=== PATIENT | male | born 1955 | race Caucasian/White ===

== ENCOUNTER 2017-10-23 10:43 | Emergency (ER) | payer OTHER ==
[~2017-10-23] VITALS: Ht 193 cm; Wt 92.5 kg
[~2017-10-23 10:43] MED LIST: ACETTAB15; ASCO500T16 PO; CHOL100010 PO; CYAN1LOZ2; FLUO20CA35 PO; LEVO175T3 PO; SIMV20TA2 PO
[2017-10-23 10:46] VITALS: Ht 193 cm; Wt 92.5 kg
[2017-10-23] MEDS ORDERED: SODIUM CHLORIDE 0.9% 1000ML 1,000 ML IV STA (11:09)
[2017-10-23 11:45] VITALS: TEMP 37
[2017-10-23 11:47] LABS: BASO % 0.1 %; BASO ABS # 0.01 K/uL (0-0.2); HEMATOCRIT 44.2 % (42-52); HEMOGLOBIN 15.5 g/dL (14.0-18.0); IG# 0.02 K/uL (0.00-0.02); LYMPH % 3.7 %; LYMPH ABS # 0.32 K/uL (1.2-3.4); MEAN CELL VOLUME 90.2 fL (80-100); MEAN CORPUSCULAR HEMOGLOBIN 31.6 pg (25-34); MEAN CORPUSCULAR HGB CONC 35.1 g/dl (32-36); MEAN PLATELET VOLUME 10.3 fL (7.4-10.4); MONO % 7.5 %; MONO ABS # 0.64 K/uL (0.11-0.59); NEUT % 88.5 %; NEUT ABS # 7.55 K/uL (1.4-6.5); PLATELET COUNT 192 K/uL (130-400); RED CELL DISTRIBUTION WIDTH CV 12.3 % (11.5-14.5); RED CELL DISTRIBUTION WIDTH SD 40.3 fL (36.4-46.3); WHITE BLOOD COUNT 8.54 K/uL (4.8-10.8)
[2017-10-23] MEDS ORDERED: CYAN10005 PO (11:52)
[2017-10-23] MEDS ORDERED: CHOL1000 PO (11:52)
[2017-10-23 12:04] LABS: ALBUMIN 4.2 gm/dl (3.4-5.0); CALCIUM 9.5 mg/dl (8.5-10.1); CREATININE 1.22 mg/dl (0.60-1.40); POTASSIUM 3.8 mmol/L (3.5-5.1)
[2017-10-23 12:22] LABS: INFLUENZA B ANTIGEN Neg for Influ B (NEG)
[2017-10-23] MEDS ORDERED: KETOROLAC TROMETHAMINE 30 MG/ML VIAL IV STA (12:39)
[2017-10-23] MEDS ORDERED: PATIENT'S ALLERGY INFO NEEDS ENTERED SCH (13:00)
[2017-10-23] MEDS ORDERED: OPTIRAY 320 IV PRN (13:00)
--- NOTE | 2017-10-23 13:22 | DIAGNOSTIC IMAGING REPORT ---
SOFT TISSUE NECK WITH CLINICAL HISTORY: 62 years-old Male presenting with R sided jaw pain, with poor R posterior/inferior dentition, difficulty swallowing. TECHNIQUE: Multidetector CT of the neck was performed after the administration of intravenous contrast. IV contrast: 92 mL of Optiray 320. A dose lowering technique was used consistent with the principles of ALARA (as low as reasonably achievable). COMPARISON: None. CT DOSE (mGy.cm): The estimated cumulative dose is 348.54 mGycm. FINDINGS: Green End Man topogram: Unremarkable. Extensive amalgam limits evaluation of the oral cavity and teeth. Allowing for this no periapical lucency or significant endodontic disease is evident. No evidence of dental caries allowing for amalgam. No evidence of superficial or deep inflammatory change. No displacement of the parapharyngeal fat planes. No suspicious enhancing nodularity along the airway. No effacement of the valleculae or piriform sinuses. Vessels patent. Limited intracranial evaluation within normal limits. Visualized portion of the paranasal sinuses and mastoid air cells clear. Temporal mandibular joints intact. Cervical spine with mild degenerative change. No lymphadenopathy. Normal appearance of the parotid and submandibular glands. Thyroid is either diminutive or surgically absent. Lung apices clear apart from mild scarring, right greater than left. IMPRESSION: 1. No evidence of inflammatory change or endodontic disease. 2. No CT abnormality of the neck. Electronically signed by: Elmer Boudreaux M.D. 10/23/2017 1:20 PM Dictated Date/Time: 10/23/2017 1:15 PM
[2017-10-23] MEDS ORDERED: AMOX500C3 PO (14:18)
--- NOTE | 2017-10-23 14:18 | EMERGENCY ROOM VISIT NOTE ---
History First contact with patient: 10:59 Chief Complaint: THROAT PAIN/INJURY Stated Complaint: CAN'T SWALLOW,LYMPH NODE,CHILLS History of Present Illness The patient is a 62 year old male who presents to the Emergency Room via private vehicle accompanied by female with complaints of "can't swallow, lymph nodes, chills". The patient states that he went to see his dentist yesterday, for right posterior inferior molar dental pain. He notes that the tooth appears to be , and will be extracted soon. He unfortunately cannot see an oral surgeon until tomorrow for consultation with removal in the near future. He states that lasted around 6 PM he started to have chills, and then felt body aches diffusely. He also feels pain/difficulty with swallowing because of the tooth on the right/enlarged lymph node he believes just inferior to the angle of mandible on the right. He rates the overall pain at times a 9/10 but notes it's more like a discomfort rather than the pain. He notes no fevers. Review of Systems A complete 10-point Review of Systems was discussed with the patient, with pertinent positives and negatives listed in the History of Present Illness. All remaining Review of Systems questions can be considered negative unless otherwise specified. Past Medical/Surgical History Medical Problems: (1) Prostate cancer Social History Smoking Status: Former Smoker Current/Historical Medications Scheduled Acetaminophen-Caffeine (Excedrin Tension Headache), prn Amoxicillin (Amoxil), 500 MG PO TID Ascorbic Acid (Ascorbic Acid), 500 MG PO DAILY Cholecalciferol (Vitamin D3), 1 TAB PO DAILY Cyanocobalamin (Vitamin B-12), 1,000 MCG PO DAILY Fluoxetine (Prozac), 20 MG PO DAILY Levothyroxine Sodium (Levothyroxine Sodium), 1 TAB PO DAILY Simvastatin (Zocor), 1 TAB PO DAILY Physical Exam Vital Signs Date Time Temp Pulse Resp B/P (MAP) Pulse Ox O2 Delivery O2 Flow Rate FiO2 10/23/17 15:10 73 16 112/67 93 10/23/17 12:53 71 14 124/62 99 Room Air 10/23/17 11:45 37.0 10/23/17 11:05 37.2 76 16 105/58 100 Room Air 10/23/17 10:50 97 Room Air 10/23/17 10:46 36.7 81 18 117/76 97 Room Air Physical Exam VITAL SIGNS - Vital signs and nursing notes were reviewed. Stable. Afebrile. Non-tachycardic and is saturating well on room air 97%. GENERAL -62-year-old male appearing his stated age who is in no acute distress. Communicates well with provider and answers questions appropriately. SKIN - Without rashes. No particular meningeal rash. HEAD - NC/AT. EYES - PERRL with EOMI bilaterally. Sclera anicteric. EARS - No deformities of external structures noted on gross examination bilaterally. External auditory canals without discharge or otorrhea. Tympanic membranes pearly oscar without retraction or bulging. No fluid or purulent material visualized behind the TM. Handle of malleus, umbo, cone of light, pars tensa/flaccid all easily visualized. NOSE - Midline and without cyanosis. No epistaxis or purulent drainage noted. Septum midline without deviation or septal hematoma noted. MOUTH/OROPHARYNX - Without perioral cyanosis. Buccal mucosa pink and moist and without leukoplakia. Tongue midline with equal elevation of palate bilaterally. No tonsillar hypertrophy, erythema, or exudates noted. Fair dentition noted. No intraoral swelling, drainage or discharge. NECK - Neck with FROM. Supple to palpation. Minimal right anterior cervical lymphadenopathy noted. No nuchal rigidity. No evidence of Curt angina. No inferior tongue tenderness. LUNGS - Chest wall symmetric without accessory muscle use, intercostals retractions, or central cyanosis. Normal vesicular breath sounds CTA B/L. No wheezes, rales, or rhonchi appreciated. CARDIAC - RRR with S1/S2. No murmur, rubs, or gallops appreciated. EXTREMITIES - +5/5 strength noted in UE/LE bilaterally. NEUROLOGIC - Cranial nerves II through XII grossly intact. Medical Decision & Procedures ER Provider Diagnostic Interpretation: SOFT TISSUE NECK WITH CLINICAL HISTORY: 62 years-old Male presenting with R sided jaw pain, with poor R posterior/inferior dentition, difficulty swallowing. TECHNIQUE: Multidetector CT of the neck was performed after the administration of intravenous contrast. IV contrast: 92 mL of Optiray 320. A dose lowering technique was used consistent with the principles of ALARA (as low as reasonably achievable). COMPARISON: None. CT DOSE (mGy.cm): The estimated cumulative dose is 348.54 mGycm. FINDINGS: Educational Assistant topogram: Unremarkable. Extensive amalgam limits evaluation of the oral cavity and teeth. Allowing for this no periapical lucency or significant endodontic disease is evident. No evidence of dental caries allowing for amalgam. No evidence of superficial or deep inflammatory change. No displacement of the parapharyngeal fat planes. No suspicious enhancing nodularity along the airway. No effacement of the valleculae or piriform sinuses. Vessels patent. Limited intracranial evaluation within normal limits. Visualized portion of the paranasal sinuses and mastoid air cells clear. Temporal mandibular joints intact. Cervical spine with mild degenerative change. No lymphadenopathy. Normal appearance of the parotid and submandibular glands. Thyroid is either diminutive or surgically absent. Lung apices clear apart from mild scarring, right greater than left. IMPRESSION: 1. No evidence of inflammatory change or endodontic disease. 2. No CT abnormality of the neck. Electronically signed by: Elmer Boudreaux M.D. 10/23/2017 1:20 PM Dictated Date/Time: 10/23/2017 1:15 PM Laboratory Results 10/23/17 11:30 Red Blood Count 4.90, Mean Corpuscular Volume 90.2, Mean Corpuscular Hemoglobin 31.6, Mean Corpuscular Hemoglobin Concent 35.1, Mean Platelet Volume 10.3, Neutrophils (%) (Auto) 88.5, Lymphocytes (%) (Auto) 3.7, Monocytes (%) (Auto) 7.5, Eosinophils (%) (Auto) 0.0, Basophils (%) (Auto) 0.1, Neutrophils # (Auto) 7.55, Lymphocytes # (Auto) 0.32, Monocytes # (Auto) 0.64, Eosinophils # (Auto) 0.00, Basophils # (Auto) 0.01 10/23/17 11:30 Test 10/23/17 11:25 10/23/17 11:30 Influenza Type A Antigen Neg for Influ A (NEG) Influenza Type B Antigen Neg for Influ B (NEG) White Blood Count 8.54 K/uL (4.8-10.8) Red Blood Count 4.90 M/uL (4.7-6.1) Hemoglobin 15.5 g/dL (14.0-18.0) Hematocrit 44.2 % (42-52) Mean Corpuscular Volume 90.2 fL (80-100) Mean Corpuscular Hemoglobin 31.6 pg (25-34) Mean Corpuscular Hemoglobin Concent 35.1 g/dl (32-36) Platelet Count 192 K/uL (130-400) Mean Platelet Volume 10.3 fL (7.4-10.4) Neutrophils (%) (Auto) 88.5 % Lymphocytes (%) (Auto) 3.7 % Monocytes (%) (Auto) 7.5 % Eosinophils (%) (Auto) 0.0 % Basophils (%) (Auto) 0.1 % Neutrophils # (Auto) 7.55 K/uL (1.4-6.5) Lymphocytes # (Auto) 0.32 K/uL (1.2-3.4) Monocytes # (Auto) 0.64 K/uL (0.11-0.59) Eosinophils # (Auto) 0.00 K/uL (0-0.5) Basophils # (Auto) 0.01 K/uL (0-0.2) RDW Standard Deviation 40.3 fL (36.4-46.3) RDW Coefficient of Variation 12.3 % (11.5-14.5) Immature Granulocyte % (Auto) 0.2 % Immature Granulocyte # (Auto) 0.02 K/uL (0.00-0.02) Anion Gap 5.0 mmol/L (3-11) Est Creatinine Clear Calc Drug Dose 75.1 ml/min Estimated GFR () 72.2 Estimated GFR (Non- 62.3 BUN/Creatinine Ratio 8.4 (10-20) Calcium Level 9.5 mg/dl (8.5-10.1) Total Bilirubin 1.3 mg/dl (0.2-1) Aspartate Amino Transf (AST/SGOT) 18 U/L (15-37) Alanine Aminotransferase (ALT/SGPT) 25 U/L (12-78) Alkaline Phosphatase 66 U/L (45-117) Total Protein 8.0 gm/dl (6.4-8.2) Albumin 4.2 gm/dl (3.4-5.0) Globulin 3.8 gm/dl (2.5-4.0) Albumin/Globulin Ratio 1.1 (0.9-2) Medications Administered Medications (Trade) Dose Ordered Sig/Alberto Route Start Time Stop Time Status Last Admin Dose Admin Sodium Chloride 1,000 ml @ 999 mls/hr Q1H1M STAT IV 10/23/17 11:09 10/23/17 12:09 DC 10/23/17 11:41 999 MLS/HR Ketorolac Tromethamine (Toradol Inj) 30 mg NOW STAT IV 10/23/17 12:39 10/23/17 12:41 DC 10/23/17 12:50 30 MG Medical Decision Patient was seen and evaluated as above. He presents to us today with right inferior dental pain, minimal swelling as well as complaints of chills. He is nontoxic on exam. Vital signs stable. After obtaining a thorough history and physical examination the above work up was performed. CBC reveals no concern of leukocytosis or anemia. Neutrophils elevated at 7.55. Metabolic panel reveals sodium of 134. No evidence of emergent kidney or liver failure. Bilirubin high at 1.3. Patient is to follow-up regarding these results with his family doctor. Influenza testing negative. Benefits versus risk of obtaining CT scan of the patient's neck was discussed with the patient, and decision was made to scan based upon the patient's level of pain, as well as the concern for any potential deeper infectious process. Results as above. No acute process. I suspect that the patient is likely experiencing to processes, one is likely that of dental pain related to the tooth nerve being which will be dealt with by an oral surgeon in the near future, and second I suspect he is likely experiencing a viral process like the flu, despite having influenza negative swab there are numerous other viruses that he could've acquired that should pass. He was given Toradol here for pain, as well as fluids. He was covered up in blankets when I reevaluated him, he just notes that he feels cold. His vital signs do not suggest sepsis nor does his physical examination. I believe he is stable for outpatient management with close follow-up with the family doctor in all surgeon and he certainly is to return here with worsening of his symptoms. The patient was educated upon management, had questions answered prior to discharge, and was discharged home in good condition. In the evaluation and treatment of this patient, the following differential diagnoses were considered: Periapical Abscess, Osteonecrosis of the Jaw, Dental Fracture, Dental Caries, Curt's Angina, Vincent's Angina, Facial Cellulitis. Impression Primary Impression: Atypical odontalgia Departure Information Dispostion Home / Self-Care Condition GOOD Prescriptions Amoxicillin (AMOXIL) 500 Mg Cap 500 MG PO TID, #30 CAP Prov: Nba Cruz PA-C 10/23/17 Referrals Zak Park M.D. (PCP) Patient Instructions My [facility] Additional Instructions You have been treated in the Emergency Department for Dental Pain. You were prescribed Amoxicillin to be taken every 8 hours. This is an antibiotic. All antibiotics have the potential to cause diarrhea. Stop this medication and contact a medical provider if you were to develop any significant adverse side effects including: wheezing, shortness of breath, passing out, vomiting, or a diffuse rash. Always take antibiotics as directed and COMPLETE the ENTIRE course regardless of the improvement of your symptoms. For pain control, you can use the following [id number] medicines: - Regular strength (325mg/tab) Tylenol (acetaminophen) 2 tabs every 4-6 hours as needed. Do not exceed 12 tablets in a 24 hour period. Avoid taking more than 3 grams (3000 mg) of Tylenol per day. This includes any other sources of acetaminophen you may take on a regular basis. - Regular strength (200 mg/tab) Advil (ibuprofen) 1-2 tabs every 4-6 hours as needed. Do not exceed a dose of 3200 mg per day. Refrain from smoking cigarettes or using chewing tobacco until you have been evaluated by your dentist. Keeping beverages lukewarm and consuming soft foods can decrease your pain. Warm compresses over the affected area may offer some relief. Return to the emergency department if you develop the following symptoms despite treatment course outlined above: fever, intractable pain, increased redness, swelling, or purulent discharge.
[2017-10-23 15:10] VITALS: BP 112/67; PULSE 73; O2SAT 93
== END 2017-10-23 15:10 | disposition home or self-care (01) ==
LOC: C.EDB 10:45 → C.EDC 15:10
DX: K08.89 Other specified disorders of teeth and supporting structures (principal); Z85.46 Personal history of malignant neoplasm of prostate; Z87.891 Personal history of nicotine dependence; Z79.899 Other long term (current) drug therapy

== ENCOUNTER 2021-07-29 01:00 | Inpatient (IN) ==
[2021-07-29] MEDS ORDERED: MoRPHine SULFATE 4 MG/ML 1 ML CARP\\VIAL IV STA ×2 (02:48→04:17)
--- NOTE | 2021-07-29 02:50 | Emergency Department Note ---
Impression & Plan Hematuria ADMIT ED Provider Note HPI: The patient is a 66-year-old male who presents the emergency department with suprapubic discomfort and hematuria/urinary retention that began earlier this afternoon following a procedure that he had at the [facility] in [place], [place]. Patient states he had this done by a urologist Dr. East. He states he lives in [place]. Patient states that about 4 PM yesterday afternoon he developed some hematuria, states he was passing some blood clots, patient states that eventually he was unable to pass any urine. He states he developed suprapubic discomfort and therefore presented to the ED here at [facility] for further care. On arrival here to the ED the patient is in moderate distress secondary to suprapubic pain, bladder scan was performed shortly after arrival which revealed 700 cc of fluid and therefore Ramey catheter was placed which drained 600 to 700 cc of gross hematuria. ROS: -: Hematuria status post urologic procedure *10 point review systems was conducted and is otherwise negative unless stated above *Outpatient medications and allergy history reviewed PE: General: Alert, mild to moderate distress secondary to pain HEENT: Normocephalic, atraumatic, trachea midline Eyes: Extraocular eye movement is intact, no scleral erythema Pulmonary: Clear to auscultation bilaterally, no wheezing Cardio: Regular rate and rhythm GI: Abdomen is soft, nontender : Suprapubic tenderness to palpation, Ramey catheter in place with a mild amount of blood surrounding the urethral meatus without active bleeding MSK: No evidence of trauma or malformation of the extremities, no edema Skin: No evidence of rash Neuro: Alert, no focal deficits Psychiatric: Cooperative nuclear monitoring technician: - An order was placed for continuous cardiac monitoring - Patient was noted to be in sinus rhythm with rate of 70 Medical Decision Making: Patient presented to the emergency department with gross hematuria several days after having a urologic procedure done at [facility] in [place], [place]. Ramey catheter was placed however this did clot, three-way catheter was therefore placed with good resolution of the patient's pain although he was having intermittent bladder spasms. Hemoglobin is 11.8, blood pressure stable, patient is not tachycardic, he was given IV morphine for pain. I did speak with the on-call urologist for [facility], Dr. Webber, accepted transfer however we were informed that there was no bed availability for likely [address] Webber therefore recommended admission to this facility for urologic consultation. I did discuss case with Dr. Duff who states that the patient can have the three-way catheter placed and if he is having continued discomfort or continued bleeding he can be admitted for urologic consultation. Three-way catheter did also require irrigation after this clotted, after irrigation the patient states his pain is greatly improved. He is still having a moderate amount of bleeding although it did clear somewhat. He is having intermittent bladder spasms. At this time I think the best course of action wo uld be for him to stay here in the hospital for urologic consultation until there is a bed available for him at his original [facility] facility. CT imaging of the abdomen pelvis without contrast was obtained for further evaluation of the bladder wall given his recent procedure, this is pending official read at the time of admission. I did discuss the case with the on-call hospitalist for [facility], Dr. Raines, who accepted the patient to an inpatient bed for further management and urologic consultation. Patient was in agreement to this plan, consent for transfer was signed when a bed is available if this is determined appropriate at that time. Patient was in agreement to this plan he w as admitted in stable condition. * Diagnosis: Gross hematuria status post urologic procedure * Disposition: Admission Benjamin Manley DO Emergency Medicine Past Med/Surg History Social History Smoking Status: Never smoker Preferred Language: Maori Feels Safe at Home: Yes Allergies Allergies Allergy/AdvReac Type Severity Reaction Status Date / Time No Known Allergies Allergy Unverified 11/05/19 19:39 Home Meds Home Medications Medication Instructions Recorded Confirmed acetaminophen 500 mg tablet 1,000 mg PO Q6H PRN 11/05/19 11/05/19 (Tylenol Extra Strength) ascorbic acid (vitamin C) 500 mg 500 mg PO DAILY 11/05/19 11/05/19 tablet (Vitamin C) cholecalciferol (vitamin D3) 25 1,000 unit PO DAILY 11/05/19 11/05/19 mcg (1,000 unit) chewable tablet (Vitamin D3) cyanocobalamin (vitamin B-12) 0 mcg PO DAILY 11/05/19 11/05/19 1,000 mcg tablet (Vitamin B-12) fluoxetine 20 mg capsule 20 mg PO DAILY 11/05/19 11/05/19 ibuprofen 200 mg tablet 600 mg PO Q6H PRN 11/05/19 11/05/19 levothyroxine 175 mcg tablet 175 mcg PO DAILY 11/05/19 11/05/19 simvastatin 20 mg tablet 20 mg PO QPM 11/05/19 11/05/19 vitamin E 1,000 unit capsule 1,000 unit PO DAILY 11/05/19 11/05/19 Previous Rx's Medication Instructions Recorded ciprofloxacin HCl 500 mg tablet 500 mg PO BID #18 tab 11/05/19 (Cipro) Results & Data (ED) Vital Signs Vital Signs - 24 hr 07/29/21 01:04 07/29/21 05:00 07/29/21 05:02 Temperature 36.5 C Temperature Source Temporal Artery Scan Pulse Rate 69 Pulse Rate [Apical] 69 Respiratory Rate 18 18 Respiratory Effort / Characteristics Non-Labored Spontaneous Respiratory Depth Normal Respiratory Pattern Regular Blood Pressure 138/71 Blood Pressure [Right Arm] 125/72 Blood Pressure Mean 93 Blood Pressure Mean [Right Arm] 89 Blood Pressure Position Sitting Blood Pressure Position [Right Arm] Sitting Pulse Oximetry 98 99 99 Oxygen Delivery Method Room Air Room Air Room Air Sepsis Recent Fever Within 48 Hours No Sepsis New/Unexplained Change in Mental Status N/A Sepsis Action Taken by Nursing No Action Required Laboratory Data Result diagrams: 07/29/21 03:14 07/29/21 03:14 Lab Results 07/29/21 07/29/21 Range/Units 03:14 03:14 WBC 12.06 H (4.8-10.8) K/uL RBC 3.90 L (4.7-6.1) M/uL Hgb 11.8 L (14.0-18.0) g/dL Hct 36.0 L (42-52) % MCV 92.3 (80-100) fL MCH 30.3 (25-34) pg MCHC 32.8 (32-36) g/dL RDW Std Deviation 42.4 (36.4-46.3) fL RDW Coeff of Marlen 12.6 (11.5-14.5) % Plt Count 223 (130-400) K/uL MPV 10.1 (7.4-10.4) fL Immature Gran % (Auto) 0.2 % Neut % (Auto) 86.7 % Lymph % (Auto) 5.2 % [place] % (Auto) 7.6 % Eos % (Auto) 0.2 % Baso % (Auto) 0.1 % Neut # (Auto) 10.45 H (1.4-6.5) K/uL Lymph # (Auto) 0.63 L (1.2-3.4) K/uL [place] # (Auto) 0.92 H (0.11-0.59) K/uL Eos # (Auto) 0.03 (0-0.5) K/uL Baso # (Auto) 0.01 (0-0.2) K/uL Immature Gran # (Auto) 0.02 (0.00-0.02) K/uL Sodium 137 (136-145) mmol/L Potassium 4.4 (3.5-5.1) mmol/L Chloride 107 (98-107) mmol/L Carbon Dioxide 28 (21-32) mmol/L Anion Gap 2.0 L (3-11) BUN 15 (7-18) mg/dl Creatinine 1.09 (0.6-1.4) mg/dl Est Cr Clr Drug Dosing 77.5 ml/min Est GFR ( Amer) 80.4 ml/min Est GFR (Non-Af Amer) 69.4 ml/min BUN/Creatinine Ratio 14.2 (10-20) Glucose 123 H (70-99) mg/dl Calcium 8.7 (8.5-10.1) mg/dl Total Bilirubin 0.4 (0.2-1) mg/dl AST 12 L (15-37) U/L ALT 19 (12-78) Alkaline Phosphatase 64 (45-117) U/L Total Protein 6.6 (6.4-8.2) gm/dl Albumin 3.4 (3.4-5.0) gm/dl Globulin 3.2 (2.5-4.0) gm/dl Albumin/Globulin Ratio 1.1 (0.9-2) Administered Medications Discontinued Medications Morphine Sulfate (Morphine Sulfate 4 Mg/Ml 1 Ml Carp\Vial) 4 mg IV NOW STA Stop: 07/29/21 02:49 Last Admin: 07/29/21 03:41 Dose: 4 mg Documented by: [id number] Morphine Sulfate (Morphine Sulfate 4 Mg/Ml 1 Ml Carp\Vial) 4 mg IV NOW STA Stop: 07/29/21 04:18 Last Admin: 07/29/21 04:22 Dose: 4 mg Documented by: [id number] Discharge Plan Visit Data Chief Complaint: Abdominal Pain Stated Complaint: ABDOMINAL PAIN ED Provider: Benjamin Manley Discharge Problem: Hematuria Forms Stand Alone Forms: [facility] Prescriptions Prescriptions: No Action vitamin E 1,000 unit Capsule 1,000 unit PO DAILY RF: 0 levothyroxine 175 mcg tablet 175 mcg PO DAILY RF: 0 cyanocobalamin (vitamin B-12) [Vitamin B-12] 1,000 mcg Tablet 0 mcg PO DAILY RF: 0 acetaminophen [Tylenol Extra Strength] 500 mg Tablet 1,000 mg PO Q6H PRN (Reason: Pain) RF: 0 ascorbic acid (vitamin C) [Vitamin C] 500 mg Tablet 500 mg PO DAILY RF: 0 simvastatin 20 mg tablet 20 mg PO QPM RF: 0 ibuprofen 200 mg Tablet 600 mg PO Q6H PRN (Reason: Pain) RF: 0 fluoxetine 20 mg capsule 20 mg PO DAILY RF: 0 cholecalciferol (vitamin D3) [Vitamin D3] 25 mcg (1,000 unit) Tablet,Chewable 1,000 unit PO DAILY RF: 0 ciprofloxacin HCl [Cipro] 500 mg tablet 500 mg PO BID Qty: 18 RF: 0 Referrals Referrals: Fredi Coyne MD [Primary Care Provider] - Discharge Problem: Hematuria Qualifiers: Hematuria type: gross Qualified Code(s): R31.0 - Gross hematuria
[2021-07-29 03:28] LABS: Basophils # (auto) 0.01 K/uL (0-0.2); Basophils % (auto) 0.1 %; Eosinophils # (auto) 0.03 K/uL (0-0.5); Eosinophils % (auto) 0.2 %; Hemoglobin 11.8 g/dL (14.0-18.0); Immature Granulocytes # (auto) 0.02 K/uL (0.00-0.02); Immature Granulocytes % (auto) 0.2 %; Lymphocytes # (auto) 0.63 K/uL (1.2-3.4); Lymphocytes % (auto) 5.2 %; Mean Corpuscular Hemoglobin 30.3 pg (25-34); Mean Corpuscular Hgb Conc 32.8 g/dL (32-36); Mean Corpuscular Volume 92.3 fL (80-100); Mean Platelet Volume 10.1 fL (7.4-10.4); Monocytes # (auto) 0.92 K/uL (0.11-0.59); Monocytes % (auto) 7.6 %; Neutrophils # (auto) 10.45 K/uL (1.4-6.5); Neutrophils % (auto) 86.7 %; Platelet Count 223 K/uL (130-400); RDW Coefficient of Variation 12.6 % (11.5-14.5); RDW Standard Deviation 42.4 fL (36.4-46.3); White Blood Count 12.06 K/uL (4.8-10.8)
[2021-07-29 03:47] LABS: Albumin Level 3.4 gm/dl (3.4-5.0); BUN Creatinine Ratio 14.2 (10-20); Calcium 8.7 mg/dl (8.5-10.1); Creatinine Clr Calc Pharmacy 77.5 ml/min; Est GFR (African American) 80.4 ml/min; Est GFR (Non-African American) 69.4 ml/min; Potassium 4.4 mmol/L (3.5-5.1)
[2021-07-29 03:50] LABS: Albumin Globulin Ratio 1.1 (0.9-2); Bilirubin,Total 0.4 mg/dl (0.2-1); Globulin 3.2 gm/dl (2.5-4.0); Total Protein 6.6 gm/dl (6.4-8.2)
[2021-07-29 05:35] LABS: Magnesium 2.2 mg/dl (1.8-2.4)
[2021-07-29 05:56] LABS: Thyroid Stimulating Hormone 1.31 uIu/ml (0.300-4.500)
--- NOTE | 2021-07-29 05:56 | History & Physical Report ---
Date of Service July 29, 2021 Assessment & Plan (1) Hematuria: Plan: Causing urinary retention Recent cystoscopy for bladder tumor probable malignancy Anemia secondary to above Prostate cancer, stable disease as per recent outpatient [facility] urologist note Hypothyroidism, euthyroid as of today's TSH hyperlipidemia on statin Rx Hyperglycemia rule out DM OBS [facility] Urology consult Re: Urinary retention, hematuria (ER provider already in touch with Dr. Duff.) N.p.o. for now until patient seen by neurologist in anticipation of any procedure. Check hemoglobin A1c DVT prophylaxis with SCDs Re: Hematuria Full code Text document was generated using [employer]ix[employer] voice recognition software. It may contain grammatical or spelling errors. Kindly contact undersigned for clarification of any documentation item in question. History of Present Illness Chief Complaint: Hematuria, urinary retention Primary Care Provider: Dr. Hodges History obtained from patient, family, and records. Medical history significant for prostate cancer, bladder tumor probable malignancy status post recent biopsy, hypothyroidism, hyperlipidemia, mood disorder, past tobacco abuse. Two months ago, patient noted gross painless hematuria. CT abdomen pelvis done last month showed enhancing nodule within urinary bladder arising from left anterior bladder wall concerning for urothelial malignancy. No suspicious renal mass or obvious suspicious urine upper urinary tract lesion. Two days ago, patient underwent outpatient cystoscopy at [facility] for bladder tumor probable cancer. Bladder was found to have 1 papillary tumor on the left anterior wall with a small stalk. Subsequent biopsy done. Yesterday, patient noted hematuria symptoms which later was followed by urinary retention and discomfort. No fever, no chills, no chest pain, no S OB. Patient consulted ER for evaluation. Ramey catheter placed in the ER. Medical History as above Patient known to have prostate cancer since 2017. Was on active surveillance protocol. Biopsy from October 2019 showed stable disease despite high PSA. Surgical History : Cysto urethroscopy with bladder tumor fulguration, prostatic biopsy Family History : Colon cancer Personal/Social history : Non-smoker, occasional EtOH intake, retired computer game tester Allergies Allergy/AdvReac Type Severity Reaction Status Date / Time No Known Allergies Allergy Unverified 07/29/21 07:24 Home Medications Medication Instructions Recorded Confirmed Type fluoxetine 20 mg capsule 20 mg PO DAILY 11/05/19 07/29/21 History ibuprofen 200 mg tablet 600 mg PO Q6H PRN 11/05/19 07/29/21 History simvastatin 20 mg tablet 20 mg PO HS 11/05/19 07/29/21 History acetaminophen 325 mg tablet 650 mg PO Q4H PRN 07/29/21 07/29/21 History (Tylenol) [id number]-rdkulhlgndbum-jofjxvgv 250 1 tab PO Q6H PRN 07/29/21 07/29/21 History mg-250 mg-65 mg tablet (Excedrin Extra Strength) levothyroxine 137 mcg tablet 137 mcg PO DAILYBB 07/29/21 07/29/21 History phenazopyridine 200 mg tablet 200 mg PO TID PRN 07/29/21 07/29/21 History (Pyridium) Past Med/Surg History Social History Smoking Status: Former smoker Smoking End Date: "Sometime in the ."; Second Hand Exposure: No; Do You Dip or Chew Tobacco: No; Hx Alcohol Use: Yes Alcohol type: beer Hx Substance Use: No Preferred Language: Jamaican Communication Ability: Effective Truck Safety Inspector Required: No Beliefs That Will Affect Care: None Current Living Situation: Spouse Other Information That Helps Us Care for You: No Feels Safe at Home: Yes Safety Concerns: Feels Safe At This Time Assistive Devices: Glasses and Hearing Aid - Bilateral Review of Systems Review of Systems: As per HPI, all 10 systems reviewed, all other ROS negative Physical Exam Physical Exam: GENERAL: Slightly uncomfortable, pleasant, no respiratory distress SKIN: Pallor, warm HEENT: Bespectacled, pale palpebral conjunctivae, no ptosis, dry buccal mucosa NECK : Supple, no tenderness CHEST : CTA, no tenderness HEART : RRR, no obvious murmurs ABDOMEN: Some distention, minimal hypogastric tenderness : Ramey catheter in place EXTREMITIES : No LE swelling/tenderness, no other conspicuous deformities noted NEUROLOGIC : Coherent, no facial asymmetry, no other gross focality Results & Data Results & Data ([facility]) Vital Signs (Past 12 Hours) Vital Signs Temp Pulse Pulse Resp BP BP Pulse Ox 07/29/21 05:02 69 18 125/72 99 07/29/21 05:00 99 07/29/21 01:04 36.5 C 69 18 138/71 98 Laboratory Results Laboratory Results WBC 12.06 K/uL (4.8-10.8) H 07/29/21 03:14 RBC 3.90 M/uL (4.7-6.1) L 07/29/21 03:14 Hgb 11.8 g/dL (14.0-18.0) L 07/29/21 03:14 Hct 36.0 % (42-52) L 07/29/21 03:14 MCV 92.3 fL (80-100) 07/29/21 03:14 MCH 30.3 pg (25-34) 07/29/21 03:14 MCHC 32.8 g/dL (32-36) 07/29/21 03:14 RDW Std Deviation 42.4 fL (36.4-46.3) 07/29/21 03:14 RDW Coeff of Marlen 12.6 % (11.5-14.5) 07/29/21 03:14 Plt Count 223 K/uL (130-400) 07/29/21 03:14 MPV 10.1 fL (7.4-10.4) 07/29/21 03:14 Immature Gran % (Auto) 0.2 % 07/29/21 03:14 Neut % (Auto) 86.7 % 07/29/21 03:14 Lymph % (Auto) 5.2 % 07/29/21 03:14 Vernon % (Auto) 7.6 % 07/29/21 03:14 Eos % (Auto) 0.2 % 07/29/21 03:14 Baso % (Auto) 0.1 % 07/29/21 03:14 Neut # (Auto) 10.45 K/uL (1.4-6.5) H 07/29/21 03:14 Lymph # (Auto) 0.63 K/uL (1.2-3.4) L 07/29/21 03:14 Vernon # (Auto) 0.92 K/uL (0.11-0.59) H 07/29/21 03:14 Eos # (Auto) 0.03 K/uL (0-0.5) 07/29/21 03:14 Baso # (Auto) 0.01 K/uL (0-0.2) 07/29/21 03:14 Immature Gran # (Auto) 0.02 K/uL (0.00-0.02) 07/29/21 03:14 PT Cancelled 07/29/21 04:45 INR Cancelled 07/29/21 04:45 APTT Cancelled 07/29/21 04:45 PTT Ratio Cancelled 07/29/21 04:45 Sodium 137 mmol/L (136-145) 07/29/21 03:14 Potassium 4.4 mmol/L (3.5-5.1) 07/29/21 03:14 Chloride 107 mmol/L (98-107) 07/29/21 03:14 Carbon Dioxide 28 mmol/L (21-32) 07/29/21 03:14 Anion Gap 2.0 (3-11) L 07/29/21 03:14 BUN 15 mg/dl (7-18) 07/29/21 03:14 Creatinine 1.09 mg/dl (0.6-1.4) 07/29/21 03:14 Est Cr Clr Drug Dosing 77.5 ml/min 07/29/21 03:14 Est GFR ( Amer) 80.4 ml/min 07/29/21 03:14 Est GFR (Non-Af Amer) 69.4 ml/min 07/29/21 03:14 BUN/Creatinine Ratio 14.2 (10-20) 07/29/21 03:14 Glucose 123 mg/dl (70-99) H 07/29/21 03:14 Calcium 8.7 mg/dl (8.5-10.1) 07/29/21 03:14 Magnesium 2.2 mg/dl (1.8-2.4) 07/29/21 03:14 Total Bilirubin 0.4 mg/dl (0.2-1) 07/29/21 03:14 AST 12 U/L (15-37) L 07/29/21 03:14 ALT 19 (12-78) 07/29/21 03:14 Alkaline Phosphatase 64 U/L (45-117) 07/29/21 03:14 Total Protein 6.6 gm/dl (6.4-8.2) 07/29/21 03:14 Albumin 3.4 gm/dl (3.4-5.0) 07/29/21 03:14 Globulin 3.2 gm/dl (2.5-4.0) 07/29/21 03:14 Albumin/Globulin Ratio 1.1 (0.9-2) 07/29/21 03:14 SARS-CoV-2, RNA, NAAT NEGATIVE (NEGATIVE) 07/29/21 05:[address] abdomen pelvis initial read: No prior studyfor comparison. The liver spleen pancreas and gallbladder appear normal. Stomach, small bowel and colon appear normal. Appendix appears normal. The adrenals and kidneys and ureters appear normal. There is complex mixed attenuation within the bladder with a small amount of bladder air. The prostate appears normal. There are moderate atherosclerotic changes in the abdominal aorta. Impression: Mixed densitywithin the bladder likelyreflecting blood products, possiblya bladder mass. Presence of air in the bladder likelyrelated to recent catheterization (1) Hematuria Hematuria type: gross Qualified Code(s): R31.0 - Gross hematuria
[2021-07-29] MEDS: SODIUM CHLORIDE 0.9% 1000ML 1,000 ML IV SCH ×2 (06:29→23:39)
--- NOTE | 2021-07-29 08:59 | CT Scan Report ---
CT OF THE ABDOMEN AND PELVIS WITHOUT CONTRAST CLINICAL HISTORY: suprapubic pain s/p bladder biopsy today COMPARISON STUDY: No previous studies for comparison. TECHNIQUE: Axial images of the abdomen and pelvis were obtained without IV contrast. Images were revi ewed in the axial, sagittal, and coronal planes. Automated exposure control was utilized for the dominic dy. A dose lowering technique was utilized adhering to the principles of ALARA. FINDINGS: Lung bases are unremarkable. No pneumatosis, free air or portal venous gas is present. No r enal, ureteral or bladder calculi are present. Prostate is enlarged, measuring 5.4 cm in transverse d imension. There is a small amount gas within the bladder. Extensive hyperdense material within the bl adder is noted. This is consistent with hemorrhage. Bladder is distended. Sensitivity for detection o f associated bladder lesions is significantly diminished on this unenhanced exam. Adjacent soft tissu es are unremarkable. Evaluation of the remainder of the abdomen and pelvis is suboptimal on this unen hanced exam. 1.1 cm fat-containing right hepatic dome lesion is benign. There is no biliary or pancre atic ductal dilatation. Unenhanced images of the spleen, adrenal glands and pancreas are unremarkable . There is no biliary or pancreatic ductal dilatation. There is no evidence for a bowel obstruction. The appendix is normal. No acute fracture or suspicious lesion is identified within visualized skelet al structures. IMPRESSION: 1. Large amount of hemorrhage within the bladder. Distended bladder. Small amount of gas within the b ladder from recent procedure. No hydronephrosis. 2. Enlarged prostate. 3. No bowel obstruction. ACT 112: Negative or not required by law. Electronically signed by: John Schaffer M.D. 07/29/2021 8:58 AM
[2021-07-29] MEDS ORDERED: LORazepam 0.5 MG/1 ML VIAL IV PRN (09:06)
[2021-07-29] MEDS ORDERED: ACETAMINOPHEN 325 MG TAB PO PRN (09:06)
[2021-07-29] MEDS ORDERED: PROMETHAZINE HCL 12.5 MG in SODIUM CHLORIDE 0.9% 50 ML IV PRN (09:06)
[2021-07-29] MEDS ORDERED: IBUPROFEN 200 MG TAB PO PRN (09:06)
[2021-07-29] MEDS: traMADol HCL 50 MG TABLET PO PRN ×2 (09:27→20:48)
[2021-07-29] MEDS: PHENAZOPYRIDINE HCL 200 MG TAB PO PRN ×2 (10:13→20:13)
[2021-07-29] MEDS: LEVOTHYROXINE SODIUM 137 MCG TABLET PO SCH (10:13)
[2021-07-29] MEDS: FLUoxetine HCL 20 MG CAP PO SCH (10:14)
[2021-07-29] MEDS: KETOROLAC TROMETHAMINE 15 MG/ML VIAL IV PRN ×2 (12:25→20:48)
[2021-07-29] MEDS ORDERED: MoRPHine SULFATE 2 MG/ML CARP IV ONE (12:41)
[2021-07-29] MEDS ORDERED: OXYBUTYNIN CHLORIDE 5 MG TAB PO PRN (12:54)
--- NOTE | 2021-07-29 14:18 | Urology Consultation ---
Date of Consultation July 29, 2021 Assessment & Plan (1) Hematuria, gross: (2) Clot retention of urine: (3) Prostate cancer: (4) Lesion of bladder: Patient company medical and surgical history was reviewed and summarized above. All imaging was reviewed interpreted by myself. Patient does have a large amount of clot debris within bladder. Was irrigated in the ER but appears to continue to have a large amount. Imaging confirms the clot within the bladder. Patient is having worsening discomfort and spasms. Has been increasing clots. Has not had a substantial clearing of the urine. Patient had the resection for the lesion within the bladder based on patient's description likely a papillary tumor. Patient had developed bleeding afterwards. No other major changes or issues. Has been dealing with acute issue. Had blood in the past. Discussed different options. Discussed possible need for clot evacuation and OR if patient becomes completely obstructed or of clot material is unable to be irrigated. Patient consented to bedside irrigation. Substantial irrigation was completed with a near complete clearing of the clot material within the bladder. A large amount of clot was able to be irrigated with copious saline irrigation and a Najma syringe. The urine was still red in color but no notable clot material. We will plan to continue patient CBI at this point. We will try to hydrate CBI down to lower rate attempting to keep the urine light pink to red. We will monitor for now. If patient continues to have major issues or if major problems or drop in blood count may need to consider taken to the OR for possible fulguration and further evacuation. At this point we will plan to continue to monitor and supportive care. Maintain catheter for now. We will utilized agents for bladder spasms and discomfort. Patient complicated medical and surgical history is being summarized above. All imaging was reviewed interpreted as above. All labs were reviewed. Plan to follow-up with Dr. East post procedure to discuss findings. Likely will be able to continue to evaluate and monitor patient's issues at that time. History of Present Illness Attending Physician: Preethi Hagan MD History of Present Illness Consult for urinary issues with hematuria. Patient a patient of Dr. East and had undergone a TURBT due to a mass or lesion within the bladder. Patient had done well initially but developed gross hematuria. At the time became severe and uncontrollable. Had trouble voiding. Was seen in the ER and had a catheter placed and clot evacuated by irrigation with the ER. Only a minimal amount was able to be relieved however this did improve patient's issues considerably. Patient has mild to moderate discomfort in pelvis and groin going to back and side in waves. Has been tolerating the catheter. Patient this morning developed more acute pain coming in waves and spasms. Has been passing large clot debris and concern for possible obstruction. Patient had been started on CBI by the ER. Has an extensive here history with Dr. East. Aside from the tumor/lesion which was removed, had some minor urinary issues in the past. No severe nausea or vomiting. Currently no fevers. No significant family history of malignancy. Allergies Allergy/AdvReac Type Severity Reaction Status Date / Time No Known Allergies Allergy Unverified 07/29/21 07:24 Home Medications Medication Instructions Recorded Confirmed Type fluoxetine 20 mg capsule 20 mg PO DAILY 11/05/19 07/29/21 History ibuprofen 200 mg tablet 600 mg PO Q6H PRN 11/05/19 07/29/21 History simvastatin 20 mg tablet 20 mg PO HS 11/05/19 07/29/21 History acetaminophen 325 mg tablet 650 mg PO Q4H PRN 07/29/21 07/29/21 History (Tylenol) [id number]-enoftrucoeixt-pcqyglpu 250 1 tab PO Q6H PRN 07/29/21 07/29/21 History mg-250 mg-65 mg tablet (Excedrin Extra Strength) levothyroxine 137 mcg tablet 137 mcg PO DAILYBB 07/29/21 07/29/21 History phenazopyridine 200 mg tablet 200 mg PO TID PRN 07/29/21 07/29/21 History (Pyridium) Patient History Social History Smoking Status: Never smoker Preferred Language: Swedish Feels Safe at Home: Yes Review of Systems Review of Systems: All systems reviewed & are unremarkable except as noted in HPI & below Physical Exam Physical Exam: General: Alert and oriented x 3 in no acute distress. Patient is well nourished and well kept. HEENT: Normocephalic Atraumatic. Inspection normal. Cranial Nerves 2-12 Grossly intact. Nares are clear. Neck is supple. Normal inspection of face. Normal inspection of neck. Neurologic: No deficits on inspection. Baseline for motor function and sensory. Psychologic: Normal affect. Respiratory: Nonlabored. No use of accessory muscles. No tachypnea or dyspnea. Cardiovascular: No tachycardia Skin: [place] and Dry. No rashes or visible lesions. Extremities: Moving without issues. No motor deficits on inspection Lymphatics: No edema Abdomen: Soft Non-distended. No acites. No rebound or guarding. : Three-way catheter in with bright red urine with multiple clots. Irrigated to light red/pink without clots. Results & Data ([facility]) Vital Signs (Past 12 Hours) Vital Signs Temp Pulse Pulse Pulse Resp BP BP 07/29/21 10:22 36.6 C 73 18 108/72 07/29/21 07:00 102 H 25 H 107/82 07/29/21 06:00 86 12 150/105 H 07/29/21 05:02 69 18 125/72 07/29/21 05:00 Pulse Ox 07/29/21 10:22 100 07/29/21 07:00 98 07/29/21 06:00 98 07/29/21 05:02 99 07/29/21 05:00 99 PG Care Time/CCT Total # of Minutes Spent Total Time Spent with Patient: Total time spent is greater than 50% in coordination of care (as documented) at patient's floor/unit and/or counseling patient: Coding Level of Care Code 72282 Inpt Consult Level 5 Diagnoses Hematuria, gross R31.0 Clot retention of urine R33.8 Prostate cancer C61 Lesion of bladder N32.9
[2021-07-29 16:43] LABS: Hematocrit (blood only) 28.7 % (42-52); Hemoglobin 9.5 g/dL (14.0-18.0)
[2021-07-29] MEDS ORDERED: LIDOCAINE 2% JELLY 5 ML TUBE ONE (19:54)
[2021-07-29] MEDS: SIMVASTATIN 20 MG TAB PO SCH (20:14)
[2021-07-29] MEDS ORDERED: BELLADONNA/OPIUM SUPP 60 MG SUPP PR PRN (20:34)
[2021-07-29] MEDS ORDERED: INFLUENZA VACCINE HIGH DOSE PF 65+ 0.7 ML SYR IM ONE (21:00)
--- NOTE | 2021-07-29 23:25 | Communication Note ---
Date of Service: July 29, 2021 Pt was seen and examined for follow up of hematuria and urinary retention. CT abd/pelvis showed large amount of hemorrhage within the bladder. Distended bladder. Small amount of gas within the bladder from recent procedure. No hydronephrosis. Enlarged prostate. Continue bladder irrigation. Continue monitor Hemoglobin 11.8 today then dropped to 9.5 today. Continue monitor H/H and transfused if need. MD Danya
[2021-07-30] MEDS: LEVOTHYROXINE SODIUM 137 MCG TABLET PO SCH (06:18)
[2021-07-30 07:29] LABS: Basophils # (auto) 0.01 K/uL (0-0.2); Basophils % (auto) 0.1 %; Eosinophils # (auto) 0.02 K/uL (0-0.5); Eosinophils % (auto) 0.2 %; Hematocrit (blood only) 21.8 % (42-52); Hemoglobin 7.2 g/dL (14.0-18.0); Immature Granulocytes # (auto) 0.02 K/uL (0.00-0.02); Immature Granulocytes % (auto) 0.2 %; Lymphocytes # (auto) 1.49 K/uL (1.2-3.4); Lymphocytes % (auto) 12.5 %; Mean Corpuscular Hemoglobin 30.8 pg (25-34); Mean Corpuscular Volume 93.2 fL (80-100); Mean Platelet Volume 9.8 fL (7.4-10.4); Monocytes # (auto) 1.58 K/uL (0.11-0.59); Monocytes % (auto) 13.3 %; Neutrophils # (auto) 8.77 K/uL (1.4-6.5); Neutrophils % (auto) 73.7 %; Platelet Count 215 K/uL (130-400); RDW Coefficient of Variation 13.2 % (11.5-14.5); RDW Standard Deviation 44.7 fL (36.4-46.3); Red Blood Count 2.34 M/uL (4.7-6.1); White Blood Count 11.89 K/uL (4.8-10.8)
[2021-07-30 07:46] LABS: Poikilocytosis Present; Polychromasia 1+
[2021-07-30] MEDS ORDERED: SODIUM CHLORIDE 0.9% 250 ML IV PRN (07:46)
[2021-07-30 07:58] LABS: BUN Creatinine Ratio 22.9 (10-20); Calcium 7.6 mg/dl (8.5-10.1); Creatinine Clr Calc Pharmacy 78.2 ml/min; Est GFR (African American) 81.3 ml/min; Est GFR (Non-African American) 70.2 ml/min; Potassium 4.2 mmol/L (3.5-5.1)
[2021-07-30] MEDS: FLUoxetine HCL 20 MG CAP PO SCH (08:40)
[2021-07-30] MEDS: traMADol HCL 50 MG TABLET PO PRN ×2 (10:48→23:20)
[2021-07-30] MEDS: PHENAZOPYRIDINE HCL 200 MG TAB PO PRN (10:49)
--- NOTE | 2021-07-30 14:36 | Urology Progress Note ---
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 After catheter exchange issues did improve. Patient is currently draining well with a orange/light yellow urine likely from Pyridium. Did discuss ways patient to monitor and self monitor issues. Patient has been complaining of some spasms around the catheter. Discussed option such as continued use of anticholinergics or utilization of BNO suppositories. We will plan to continue patient CBI at this point. We will try to hydrate CBI down to lower rate attempting to keep the urine ideally clear/yellow/orange but cannot tolerate up to light pink to red. We will monitor for now. If patient continues to have major issues or if major problems or drop in blood count may need to consider taken to the OR for possible fulguration and further evacuation. At this point we will plan to continue to monitor and supportive care. Maintain catheter for now. Multiple patients from patient but different options. Due to severity of issues last night and concern for recurrence of issues with continued gross hematuria may need to consider fulguration and clot evacuation in the OR tomorrow if patient is having issues. Patient is somewhat hesitant. He would prefer to have a procedure with Dr. East if possible however due to the severe bed crisis it would be unlikely that transfer would be available. If patient does continue to do well will likely be able discharged with catheter. Plan to follow-up with Dr. East post procedure to discuss findings. Likely will be able to continue to evaluate and monitor patient's issues at that time. Admission and Anticipated Discharge Date Admission Date: July 29, 2021 Subjective [facility] with development of gross hematuria approximately 24 hours later. Developed then severe clot retention. Has been admitted on continuous bladder irrigation and supportive care. Patient underwent a aggressive clot evacuation by myself yesterday. Patient has been tolerating well, but is having some pain and discomfort. Last evening however patient developed a severe episode of gross hematuria with distention. Once again required irrigation. Patient had catheter exchanged out based on my recommendations to a larger three-way catheter. At this point a large amount of urine was able to be drained. This drastically improved output. Patient did have continued episodes through the night. And clinical laboratory service teacher. Has been tolerating catheter. He does get leakage around catheter at times. Multiple questions from patient. Otherwise patient has been ambulating. Had been tolerating diet. Review of Systems Review of Systems: All systems reviewed & are unremarkable except as noted in HPI & below Physical Exam Physical Exam: General: Alert in no acute distress. HEENT: Normocephalic Atraumatic. Inspection normal. Cranial Nerves 2-12 Grossly intact. Normal inspection of face. Normal inspection of neck. Psychologic: Normal affect. Respiratory: Nonlabored. No use of accessory muscles. No tachypnea or dyspnea. Cardiovascular: No tachycardia Skin: [place] and Dry. No rashes or visible lesions. Extremities/Lymphatics: No edema Abdomen: Appropriately tender. Mild distended. No rebound or guarding. : Ramey in place draining orange/Pyridium urine without clot. Results & Data ([facility]) Vital Signs (Past 12 Hours) Vital Signs Temp Pulse Pulse Resp BP BP Pulse Ox 07/30/21 12:13 36.9 C 76 18 124/67 100 07/30/21 11:05 36.6 C 75 18 122/64 100 07/30/21 10:05 36.9 C 78 18 120/66 98 07/30/21 09:35 37.2 C 73 16 116/64 98 07/30/21 09:22 36.9 C 82 18 125/58 L 98 07/30/21 09:05 36.9 C 75 18 112/60 96 07/30/21 06:17 36.6 C 90 15 114/62 97 PG Care Time/CCT Total # of Minutes Spent Total Time Spent with Patient: Total time spent is greater than 50% in coordination of care (as documented) at patient's floor/unit and/or counseling patient: Coding Level of Care Code 06873 Subseq Hosp Care Lvl 3 Diagnoses Hematuria, gross R31.0 Clot retention of urine R33.8 Prostate cancer C61 Lesion of bladder N32.9
[2021-07-30] MEDS: COUGH DROP (SUGAR FREE) LOZ 24 LOZ/1 BOX BUCCAL PRN ×2 (15:02→18:35)
[2021-07-30] MEDS: SODIUM CHLORIDE 0.9% 1000ML 1,000 ML IV SCH (16:41)
[2021-07-30] MEDS: SIMVASTATIN 20 MG TAB PO SCH (20:11)
[2021-07-30 20:15] LABS: Hematocrit (blood only) 22.6 % (42-52); Hemoglobin 7.5 g/dL (14.0-18.0)
--- NOTE | 2021-07-30 23:58 | Hospitalist Progress Note ---
Date of Service July 30, 2021 Assessment & Plan (1) Hematuria: Plan: Urinary retention Recent cystoscopy for bladder tumor probable malignancy CT abd/pelvis showed Large amount of hemorrhage within the bladder. Distended bladder. Small amount of gas within the bladder from recent procedure. No hydronephrosis. Lewis cath changed to a larger size Urology on board Case discussed with urology that recommended to continue bladder irrigation if continue to have gross hematuria/clot may need to consider fulguration and clot evacuation in the OR tomorrow Continue monitor hemoglobin Symptoms improved Continue Pyridium Anemia Hgb dropped to 7.2 today Type and crossed done and will plan to transfuse 2 units PRBC Consent signed for blood transfusion Continue monitor H/H Continue to hold Excedrin prn Prostate cancer Follow up with dr. East outpatient [facility] Hypothyroidism TSH stable Continue Levothyroxine Hyperglycemia Will Check Hba1c Continue monitor BS DVT prophylaxis with SCDs Re: Hematuria Full code Disposition Will discharge once stable Admission and Anticipated Discharge Date Admission Date: July 29, 2021 Subjective Pt was seen and examined for follow up of urinary retention and hematuria Lying in bed with no acute distress Pt said that bladder pain and spasm improved since lewis catheter was changed last night Pt said that his strength and energy are ok Hgb dropped to 7.2 today Consent signed for PRBC transfusion Denies any chest pain, palpitation, dizziness and SOB Review of Systems Review of Systems: All systems reviewed & are unremarkable except as noted in Subjective Physical Exam Physical Exam: General- No acute distress Head- atraumatic Eyes- PERRL, EOMI, ENT- oropharynx clear Neck- supple, no JVD Lungs- clear to auscultation Heart- regular rhythm; no murmur Abdomen- normal bowel sounds, soft, nontender Extremities- no calf tenderness Neuro- alert, oriented x 3; PERRL, EOMI; no facial palsy; no dysarthria Skin- warm & dry Results & Data Results & Data ([facility]) Vital Signs (Past 12 Hours) Vital Signs Temp Pulse Pulse Resp BP BP Pulse Ox 07/30/21 22:02 36.9 C 75 16 113/54 L 97 07/30/21 16:17 36.7 C 76 18 132/68 96 07/30/21 12:13 36.9 C 76 18 124/67 100 (1) Hematuria Hematuria type: gross Qualified Code(s): R31.0 - Gross hematuria
[2021-07-31] MEDS ORDERED: SODIUM CHLORIDE 0.9% 250 ML IV PRN (00:01)
[2021-07-31] MEDS: LEVOTHYROXINE SODIUM 137 MCG TABLET PO SCH (05:54)
[2021-07-31] MEDS: FLUoxetine HCL 20 MG CAP PO SCH (07:41)
[2021-07-31 08:36] LABS: Basophils # (auto) 0.02 K/uL (0-0.2); Basophils % (auto) 0.2 %; Eosinophils # (auto) 0.15 K/uL (0-0.5); Eosinophils % (auto) 1.8 %; Immature Granulocytes # (auto) 0.04 K/uL (0.00-0.02); Immature Granulocytes % (auto) 0.5 %; Lymphocytes # (auto) 1.22 K/uL (1.2-3.4); Lymphocytes % (auto) 14.9 %; Mean Corpuscular Hemoglobin 30.7 pg (25-34); Mean Corpuscular Hgb Conc 33.3 g/dL (32-36); Mean Platelet Volume 9.6 fL (7.4-10.4); Monocytes # (auto) 0.96 K/uL (0.11-0.59); Monocytes % (auto) 11.7 %; Neutrophils # (auto) 5.79 K/uL (1.4-6.5); Neutrophils % (auto) 70.9 %; Platelet Count 163 K/uL (130-400); RDW Coefficient of Variation 13.5 % (11.5-14.5); RDW Standard Deviation 44.9 fL (36.4-46.3); Red Blood Count 2.61 M/uL (4.7-6.1); White Blood Count 8.18 K/uL (4.8-10.8)
[2021-07-31 10:20] LABS: Calcium 7.9 mg/dl (8.5-10.1); Creatinine Clr Calc Pharmacy 89.9 ml/min; Est GFR (African American) 96.2 ml/min; Potassium 3.8 mmol/L (3.5-5.1)
[2021-07-31 10:58] LABS: Estimated Average Glucose 105 mg/dl; Hemoglobin A1C 5.3 % (4.5-5.6)
--- NOTE | 2021-07-31 11:03 | Hospitalist Progress Note ---
Date of Service July 31, 2021 Assessment & Plan (1) Hematuria: Plan: Urinary retention Recent cystoscopy for bladder tumor probable malignancy CT abd/pelvis showed Large amount of hemorrhage within the bladder. Distended bladder. Small amount of gas within the bladder from recent procedure. No hydronephrosis. Ramey cath changed to a larger size Urology on board Case discussed with urology that recommended to continue bladder irrigation if continue to have gross hematuria/clot may need to consider fulguration and clot evacuation in the OR Continue monitor hemoglobin -8.0 today s/p 2 unit PRBC Continue Pyridium repeat hgb 1600 Anemia Hgb dropped to 7.2 on 07/31/21 s/p 2 units PRBC hgb 8.0 today Consent signed for blood transfusion Continue monitor H/H Continue to hold Excedrin prn Prostate cancer Follow up with dr. East outpatient [facility] Hypothyroidism TSH stable Continue Levothyroxine Hyperglycemia a1c 5.3 DVT prophylaxis with SCDs Re: Hematuria Full code Disposition Continue to monitor hgb, irrigate cath prn for clots. If hgb remains stable and urine remains clear may be able to d/c in a.m. PCP: Previously Dr. Coyne, will follow up with [facility] outpatient Patient was seen and examined in collaboration with Dr. Hagan, please see addendum The chart was completed utilizing [email or web address] Speech voice recognition software. Grammatical errors, random word insertions, pronoun errors, and incomplete sentences are an occasional consequence of this system due to software limitations, ambient noise, and hardware issues. Any formal questions or concerns about the content, text, or information contained within the body of this dictation should be directly addressed to the provider for clarification. Admission and Anticipated Discharge Date Admission Date: July 31, 2021 Supervising Physician Co-Signing Physician Notes Patient was seen and and examined. Agree with Treasure MOSQUEDA exam assessment and plan. Patient said that he feels much better today. He said that he is not having any bladder discomfort. Urine has been clear through the Ramey catheter. Denies any chest pain, palpitation, dizziness, shortness of breath. General- No acute distress Head- atraumatic Eyes- PERRL, EOMI, ENT- oropharynx clear Neck- supple, no JVD Lungs- clear to auscultation Heart- regular rhythm; no murmur Abdomen- normal bowel sounds, soft, nontender Extremities- no calf tenderness Neuro- alert, oriented x 3; PERRL, EOMI; no facial palsy; no dysarthria Skin- warm & dry Hematuria: Urinary retention Recent cystoscopy for bladder tumor probable malignancy CT abd/pelvis showedLarge amount of hemorrhage within the bladder. Distended bl adder. Small amount of gas within the bladder from recent procedure. No hydronephrosis. Ramey cath changed to a larger size Urology on board Case discussed with urology that recommended to continue bladder irrigation Urology recommended to discharge home with the Ramey catheter and follow-up with urology outpatient Continue Pyridium Clinically improved significantly Okay from urology standpoint to discharge home today Anemia Hgb dropped to 7.2 today Received 2 unit PRBC during the hospital course Hemoglobin 8 this morning and repeat hemoglobin later in afternoon 8.9 Continue to hold Excedrin prn and any other NSAID Please refer to Treasure MOSQUEDA's documentation for other problems MD Danya Subjective Patient was seen and examined in 322. Follow-up hematuria. He offers no acute concerns this morning. Urine has become more clear overnight without evidence of blood. He denies fever, chills, sweats, lightheadedness, dizziness, chest pain, shortness of breath, nausea, vomiting, abdominal pain. Review of Systems Review of Systems: All systems reviewed & are unremarkable except as noted in HPI & below Physical Exam Physical Exam: Gen: WD/WN, NAD, A&O x3 HEENT: Normocephalic, atraumatic, conjunctivae moist, sclerae anicteric, mucous membranes moist. Lung: Clear to Auscultation bilaterally, no wheezes/rales/rhonchi Heart: Regular rate, regular rhythm, no murmurs, rubs, or gallops Abdomen: Soft, NT, ND +BS x 4 Extremities: No edema Skin: Warm, no rash, negative turgor. : Ramey draining yellow urine Results & Data Results & Data ([facility]) Vital Signs (Past 12 Hours) Vital Signs Temp Pulse Pulse Resp BP BP Pulse Ox 07/31/21 07:22 36.6 C 66 18 115/65 95 07/31/21 03:33 36.7 C 66 16 124/68 95 07/31/21 02:42 65 16 120/68 95 07/31/21 02:15 36.9 C 67 14 116/70 97 07/31/21 01:59 37.1 C 69 16 111/65 96 07/31/21 01:33 37.0 C 78 16 115/63 95 Laboratory Results Short CBC 07/30/21 07/31/21 Range/Units 20:05 08:07 WBC 8.18 (4.8-10.8) K/uL Hgb 7.5 L 8.0 L (14.0-18.0) g/dL Hct 22.6 L 24.0 L (42-52) % Plt Count 163 (130-400) K/uL BMP 07/31/21 09:14 Sodium 139 Potassium 3.8 Chloride 105 Carbon Dioxide 29 BUN 12 D Creatinine 0.94 Glucose 112 H Calcium 7.9 L Medications Administered Current Inpatient Medications Acetaminophen (Acetaminophen 325 Mg Tab) 650 mg PO Q4H PRN PRN Reason: pain/fever Stop: 08/28/21 09:05 Belladonna Alkaloids/Opium (Belladonna/Opium Supp 60 Mg Supp) 60 mg MD Q8H PRN PRN Reason: Bladder pain Stop: 08/12/21 20:33 Fluoxetine HCl (Fluoxetine Hcl 20 Mg Cap) 20 mg PO DAILY DENNY Stop: 08/28/21 10:29 Last Admin: 07/31/21 07:41 Dose: 20 mg Documented by: Lorazepam (Ativan) 0.5 mg in 1 mls @ 1 mls/min IV Q4H PRN PRN Reason: Anxiety/Agitation Stop: 08/28/21 09:05 Last Admin: 07/29/21 11:23 Dose: 1 mls/min Documented by: Promethazine HCl 12.5 mg/ (Sodium Chloride) 50.5 mls @ 202 mls/hr IV Q6H PRN PRN Reason: Nausea And Vomiting Stop: 08/28/21 09:05 Ibuprofen (Ibuprofen 200 Mg Tab) 200 mg PO Q6H PRN PRN Reason: Mild Pain Stop: 08/28/21 09:05 Ketorolac Tromethamine (Ketorolac Tromethamine 15 Mg/Ml Vial) 15 mg IV Q6H PRN PRN Reason: Pain Stop: 08/03/21 09:05 Last Admin: 07/29/21 20:48 Dose: 15 mg Documented by: Levothyroxine Sodium (Levothyroxine Sodium 137 Mcg Tablet) 137 mcg [facility] Stop: 08/28/21 10:29 Last Admin: 07/31/21 05:54 Dose: 137 mcg Documented by: Menthol (Cough Drop (Sugar Free) María Elena 24 María Elena/1 Box) 1 maría elena BUCCAL PRN PRN PRN Reason: Sore Throat Stop: 08/29/21 14:10 Last Admin: 07/30/21 18:35 Dose: 1 maría elena Documented by: Oxybutynin Chloride (Oxybutynin Chloride 5 Mg Tab) 5 mg PO Q8H PRN PRN Reason: Bladder pain Stop: 08/28/21 12:53 Last Admin: 07/29/21 13:59 Dose: 5 mg Documented by: Phenazopyridine HCl (Phenazopyridine Hcl 200 Mg Tab) 200 mg PO TID PRN PRN Reason: Bladder pain Stop: 08/28/21 09:05 Last Admin: 07/30/21 10:49 Dose: 200 mg Documented by: Simvastatin (Simvastatin 20 Mg Tab) 20 mg PO QPM DENNY Stop: 08/28/21 20:59 Last Admin: 07/30/21 20:11 Dose: 20 mg Documented by: Tramadol HCl (Tramadol Hcl 50 Mg Tablet) 25 - 50 mg PO Q4H PRN PRN Reason: Pain Stop: 08/28/21 09:05 Last Admin: 07/30/21 23:20 Dose: 50 mg Documented by: (1) Hematuria Hematuria type: gross Qualified Code(s): R31.0 - Gross hematuria
--- NOTE | 2021-07-31 11:28 | Urology Progress Note ---
Date of Service July 31, 2021 Assessment & Plan (1) Hematuria, gross: (2) Clot retention of urine: Plan: 66yo M who is s/p recent TURBT at outside facility admitted with urinary retention and gross hematuria. - Pt with clot retention requiring Ramey catheter placement and CBI - Hematuria has cleared - Ramey catheter draining clear yellow urine with CBI clamped - No acute intervention indicated at this time - He is afebrile, VSS. - Labs reviewed -White count normal, Hemoglobin 8.0 today s/p 2 unit PRBC, Creatinine normal - Continue to trend - Continue supportive care and close monitoring - Maintain Ramey catheter and continue on discharge - Ok to gently hand irrigate catheter as needed for clots, retention, suprapubic pain - Monitor H&H, transfuse as felt necessary per primary team - Plan to follow-up with current urologist (Dr. East) as outpatient for continued care - Will continue to follow peripherally, please call with any further questions or concerns Admission and Anticipated Discharge Date Admission Date: July 31, 2021 Subjective Pt examined at bedside this morning. Awake, resting in bed on arrival. No acute distress. He denies abdominal, flank, or suprapubic pain. No fevers or chills. Denies nausea or vomiting. Ramey intact, draining clear yellow urine with CBI clamped. Offers no additional complaints at time of exam. Review of Systems Constitutional: as per Subjective / HPI Gastrointestinal: as per Subjective / HPI Genitourinary: + as per Subjective / HPI Physical Exam Constitutional: well developed and well nourished; no acute distress and not ill appearing Respiratory: normal respiratory effort and able to speak in complete sentences; no labored breathing and no audible wheezes Gastrointestinal (Abdomen): Inspection/Auscultation: abdomen normal to inspection; abdomen not distended Musculoskeletal: Head/Neck/Chest: normocephalic Skin: No visible rashes or lesions to exposed skin areas Neurologic: moves all extremities and awake Psychiatric: Orientation: alert, oriented x 3 and cooperative Genitourinary: Ramey catheter intact, draining clear yellow urine Results & Data ([facility]) Vital Signs (Past 12 Hours) Vital Signs Temp Pulse Pulse Resp BP BP Pulse Ox 07/31/21 07:22 36.6 C 66 18 115/65 95 07/31/21 03:33 36.7 C 66 16 124/68 95 07/31/21 02:42 65 16 120/68 95 07/31/21 02:15 36.9 C 67 14 116/70 97 07/31/21 01:59 37.1 C 69 16 111/65 96 07/31/21 01:33 37.0 C 78 16 115/63 95 PG Care Time/CCT Total # of Minutes Spent Total Time Spent with Patient: Total time spent is greater than 50% in coordination of care (as documented) at patient's floor/unit and/or counseling patient: Coding Level of Care Code 55913 Subseq Hosp Care Lvl 2 Diagnoses Hematuria, gross R31.0 Clot retention of urine R33.8
[2021-07-31] MEDS: traMADol HCL 50 MG TABLET PO PRN (15:21)
[2021-07-31 16:32] LABS: Hematocrit (blood only) 26.5 % (42-52); Hemoglobin 8.9 g/dL (14.0-18.0)
--- NOTE | 2021-07-31 16:46 | Discharge Summary ---
Date of Service July 31, 2021 Admission HPI Per Admitting Provider History obtained from patient, family, and records. Medical history significant for prostate cancer, bladder tumor probable malignancy status post recent biopsy, hypothyroidism, hyperlipidemia, mood disorder, past tobacco abuse. Two months ago, patient noted gross painless hematuria. CT abdomen pelvis done last month showed enhancing nodule within urinary bladder arising from left anterior bladder wall concerning for urothelial malignancy. No suspicious renal mass or obvious suspicious urine upper urinary tract lesion. Two days ago, patient underwent outpatient cystoscopy at [facility] for bladder tumor probable cancer. Bladder was found to have 1 papillary tumor on the left anterior wall with a small stalk. Subsequent biopsy done. Yesterday, patient noted hematuria symptoms which later was followed by urinary retention and discomfort. No fever, no chills, no chest pain, no S OB. Patient consulted ER for evaluation. Lewis catheter placed in the ER. Medical History as above Patient known to have prostate cancer since 2017. Was on active surveillance protocol. Biopsy from October 2019 showed stable disease despite high PSA. Surgical History : Cysto urethroscopy with bladder tumor fulguration, prostatic biopsy Family History : Colon cancer Personal/Social history : Non-smoker, occasional EtOH intake, retired computer science teacher Admission Exam Per Admitting Provider GENERAL: Slightly uncomfortable, pleasant, no respiratory distress SKIN: Pallor, warm HEENT: Bespectacled, pale palpebral conjunctivae, no ptosis, dry buccal mucosa NECK : Supple, no tenderness CHEST : CTA, no tenderness HEART : RRR, no obvious murmurs ABDOMEN: Some distention, minimal hypogastric tenderness : Lewis catheter in place EXTREMITIES : No LE swelling/tenderness, no other conspicuous deformities noted NEUROLOGIC : Coherent, no facial asymmetry, no other gross focality Principal Diagnosis Hematuria s/p cystoscopy Acute blood loss anemia Discharge Exam Gen: WD/WN, NAD, A&O x3 HEENT: Normocephalic, atraumatic, conjunctivae moist, sclerae anicteric, mucous membranes moist. Lung: Clear to Auscultation bilaterally, no wheezes/rales/rhonchi Heart: Regular rate, regular rhythm, no murmurs, rubs, or gallops Abdomen: Soft, NT, ND +BS x 4 Extremities: No edema Skin: Warm, no rash, negative turgor. : Lewis draining yellow urine Discharge Data Allergies Allergy/AdvReac Type Severity Reaction Status Date / Time No Known Allergies Allergy Unverified 07/29/21 07:24 Consultations 07/29/21 05:22 ED Decision to Admit Stat Urology Consult: Assessment & Plan (1) Hematuria, gross: (2) Clot retention of urine: Plan: 66yo M who is s/p recent TURBT at outside facility admitted with urinary retention and gross hematuria. - Pt with clot retention requiring Lewis catheter placement and CBI - Hematuria has cleared - Lewis catheter draining clear yellow urine with CBI clamped - No acute intervention indicated at this time - He is afebrile, VSS. - Labs reviewed -White count normal, Hemoglobin 8.0 today s/p 2 unit PRBC, Creatinine normal - Continue to trend - Continue supportive care and close monitoring - Maintain Lewis catheter and continue on discharge - Ok to gently hand irrigate catheter as needed for clots, retention, suprapubic pain - Monitor H&H, transfuse as felt necessary per primary team - Plan to follow-up with current urologist (Dr. East) as outpatient for continued care - Will continue to follow peripherally, please call with any further questions or concerns Procedures Performed Operation Date: 07/31/21 07:00 <No data on this case meets the specified criteria> Ordered Studies Abdomen/Pelvis CT 07/29/21 02:51 CT OF THE ABDOMEN AND PELVIS WITHOUT CONTRAST CLINICAL HISTORY: suprapubic pain s/p bladder biopsy today COMPARISON STUDY: No previous studies for comparison. TECHNIQUE: Axial images of the abdomen and pelvis were obtained without IV contrast. Images were reviewed in the axial, sagittal, and coronal planes. Automated exposure control was utilized for the study. A dose lowering technique was utilized adhering to the principles of ALARA. FINDINGS: Lung bases are unremarkable. No pneumatosis, free air or portal venous gas is present. No renal, ureteral or bladder calculi are present. Prostate is enlarged, measuring 5.4 cm in transverse dimension. There is a small amount gas within the bladder. Extensive hyperdense material within the bladder is noted. This is consistent with hemorrhage. Bladder is distended. Sensitivity for detection of associated bladder lesions is significantly diminished on this unenhanced exam. Adjacent soft tissues are unremarkable. Evaluation of the remainder of the abdomen and pelvis is suboptimal on this unenhanced exam. 1.1 cm fat-containing right hepatic dome lesion is benign. There is no biliary or pancreatic ductal dilatation. Unenhanced images of the spleen, adrenal glands and pancreas are unremarkable. There is no biliary or pancreatic ductal dilatation. There is no evidence for a bowel obstruction. The appendix is normal. No acute fracture or suspicious lesion is identified within visualized skeletal structures. IMPRESSION: 1. Large amount of hemorrhage within the bladder. Distended bladder. Small amount of gas within the bladder from recent procedure. No hydronephrosis. 2. Enlarged prostate. 3. No bowel obstruction. ACT 112: Negative or not required by law. Electronically signed by: John Schaffer M.D. 07/29/2021 8:58 AM Diabetes Follow up a1c 5.3 Hospital Course (1) Hematuria: This is a 58-year-old male who has significant past medical history of prostate cancer and hypothyroidism who presented to ED after recently undergoing TURBT at [facility] and developed urinary retention and hematuria. CT abdomen pelvis on admission showed large amount of hemorrhage within the bladder, distended bladder and small amount of gas in the bladder from recent procedure. His Lewis catheter was changed to a larger size. Urology was consulted who recommended to continue bladder irrigation. His hemoglobin dropped to 7.2 and was transfused 2 units of PRBC. He tolerated CBI well and urine remained yellow and clear without further bleeding. He was seen by urology on day of discharge. His hematuria had cleared and it was felt he was safe to be discharged home with Lewis catheter in place. He is recommended to follow-up with Dr. East his urologist as outpatient. His hemoglobin has improved and is trending up to 8.9. He is scheduled for follow-up with PCP and urologist. At time of discharge he was in good spirits, vital signs are stable, hemoglobin was 8.9 and hematuria has resolved. The chart was completed utilizing [employer] Speech voice recognition software. Grammatical errors, random word insertions, pronoun errors, and incomplete sentences are an occasional consequence of this system due to software limita tions, ambient noise, and hardware issues. Any formal questions or concerns about the content, text, or information contained within the body of this dictation should be directly addressed to the provider for clarification. Total Time Total Time Spent Total Time Spent (In Minutes): 35 minutes Total Time Includes: Examination of the Patient, Discharge Planning, Medication Reconciliation, Communication With Other Providers and Other Discharge Plan Discharge Items Patient Disposition: Home - Self-Care Reason For Visit: HEMATURIA/URINARY RETENTION Discharge Diagnosis: Hematuria s/p cystoscopy Acute blood loss anemia Activity: Resume your previous activity Lifting: None Non-emergency contact: Primary Care Provider and Urologist Call non-emergency contact if: you have any medication questions, your symptoms worsen, your pain is not controlled, your pain is worsening, your pain is unusual for you, your pain is concerning for you, you have a fever and your temperature is above 101 Follow-up/Referrals: Sue East MD [Physician] - (Date & Time 08/03/2021 3:30 PM Provider Sue East MD Department Urology [facility] Please note that this is a telephone appointment. Dr East aware that you are at [facility], the Urology office will call you on your cell phone. ) Srinivas Hodges MD [Outside Practitioners] - (Date & Time 08/04/2021 3:20 PM Provider Srinivas Hodges MD Department Family Practice [facility] ) Diet: Regular Addtl Attending Provider Instructions: RECOMMENDATIONS FOR FOLLOW-UP: You have been scheduled a follow up for Dr. East of Urology and PCP Dr. Hodges. Please keep these scheduled appointments. Keep lewis catheter in place. You have been prescribed Tramadol 50mg to take every 4 hours as needed for severe pain. Otherwise please use Tylenol to control pain. Monitor your lewis catheter bag. If you notice blood in your urine please contact urologist immediately. Please take all home medications as prescribed. Recommend CBC (lab work) to monitor your blood counts at follow up appointment with Dr. Hodges. Avoid anti inflammatory medications due to risk of bleeding including ibuprofen, motrin, naproxen, aleve, and excedrin. OTHER INSTRUCTIONS: Seek medical attention if you have: * temperature above 101 * chest pain or trouble breathing * abdominal pain, nausea, vomiting * diarrhea, dark stools or bloody stools * any unanswered questions or concerns Call 911 if symptoms are severe. Please take good care of yourself. It has been a pleasure taking care of you. Please take care of yourself. If you have any questions regarding your recent hospitalization please contact [facility] and request [facility] Hospitalist @ [phone]. Treasure Weiss PA-C Pending Studies at Discharge: No Stand-Alone Forms: My [facility], Smoking Cessation Medications and DC Order Prescriptions: New tramadol 50 mg Tablet 50 mg PO Q4H PRN (Reason: pain) Qty: 6 RF: 0 Continued simvastatin 20 mg tablet 20 mg PO HS RF: 0 fluoxetine 20 mg capsule 20 mg PO DAILY RF: 0 phenazopyridine [Pyridium] 200 mg Tablet 200 mg PO TID PRN (Reason: Other) RF: 0 levothyroxine 137 mcg tablet 137 mcg PO DAILYBB RF: 0 acetaminophen [Tylenol] 325 mg Tablet 650 mg PO Q4H PRN (Reason: Pain) RF: 0 Discontinued ibuprofen 200 mg Tablet 600 mg PO Q6H PRN (Reason: Pain) RF: 0 Excedrin Extra Strength 250-250-65 mg Tablet 1 tab PO Q6H PRN (Reason: Pain) RF: 0 Discharge Orders: Discharge Order (Routine); Ordered 07/31/21 Ordered By: Treasure Boyle/Other Patient Handouts: Emptying and Cleaning Your ..., Indwelling Urinary Catheter Dc, Leg Bag Care Dc Admission Data Admit Date/Time: 07/31/21 02:29 Attending Provider: Preethi Hagan Admit Provider: Preethi Hagan Primary Care Provider: Fredi Coyne Other Providers: Ted Baker ; Jin Duff ; Treasure Weiss Other Interventions: Discharge Summary Assessment (RN) Last Done: 07/31/21 16:41
== END 2021-07-31 18:50 | disposition home or self-care (01) | DRG 920 ==
LOC: ED 01:00 → 3E 01:00 → OBSVTOIN 05:59 → 3E 06:00
DX: D62 Acute posthemorrhagic anemia; Z80.0 Family history of malignant neoplasm of digestive organs; C67.9 Malignant neoplasm of bladder, unspecified; Z98.890 Other specified postprocedural states; E03.9 Hypothyroidism, unspecified; C61 Malignant neoplasm of prostate; E78.5 Hyperlipidemia, unspecified; F39 Unspecified mood [affective] disorder; N99.820 Postprocedural hemorrhage of a genitourinary system organ or structure following a genitourinary system procedure; Y92.009 Unspecified place in unspecified non-institutional (private) residence as the place of occurrence of the external cause; N40.1 Benign prostatic hyperplasia with lower urinary tract symptoms; Z87.891 Personal history of nicotine dependence; R31.0 Gross hematuria; R33.9 Retention of urine, unspecified